=== PATIENT | male | born 2000 | race Caucasian/White ===

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

== ENCOUNTER 2022-02-12 01:16 | Emergency (ER) | payer OTHER ==
[~2022-02-12] VITALS: Ht 185.4 cm; Wt 116.6 kg
[~2022-02-12 01:16] MED LIST: IBUP-2213 PO
[2022-02-12 01:35] VITALS: BP 130/83
--- NOTE | 2022-02-12 01:41 | NUR ---
PATIENT TO LOBBY
--- NOTE | 2022-02-12 02:04 | NUR ---
PATIENT TO BED 3
--- NOTE | 2022-02-12 02:26 | NUR ---
PATIENT IN BED SIDE RAILS UP X1.
[2022-02-12] MEDS ORDERED: HYDROcodone/APAP 7.5/325 MG 1 TAB PO ONE (02:45)
[2022-02-12] MEDS ORDERED: AMOXIL/CLAVULANATE 500/125 MG 1 TAB PO SCH (02:45)
[2022-02-12] MEDS ORDERED: AMOXICILLIN 500 MG CAP ONE (03:03)
[2022-02-12 03:05] LABS: BASOPHILS % (AUTO) 0.4 % (0.0-2.0); EOSINOPHILS % (AUTO) 0.5 % (0.0-4.0); HEMATOCRIT 45.8 % (36-52); HEMOGLOBIN 15.4 g/dL (12.0-18.0); LYMPHOCYTES % (AUTO) 30.4 % (20.5-51.1); MEAN CORPUSCULAR HEMOGLOBIN 30 pg (27-31); MEAN CORPUSCULAR HGB CONC 34 g/dL (33-37); MEAN CORPUSCULAR VOLUME 88.7 fL (80-94); MONOCYTES # (AUTO) 0.8 K/uL (0.8-1.0); MONOCYTES % (AUTO) 8.2 % (1.7-9.3); NEUTROPHILS # (AUTO) 5.9 K/uL (1.8-7.7); NEUTROPHILS % (AUTO) 60.5 % (42.2-75.2); PLATELET COUNT (AUTO) 191 K/uL (140-450); RED BLOOD CELL COUNT(AUTO) 5.16 MIL/uL (4.20-6.10); RED CELL DISTRIBUTION WIDTH 13.5 % (11.6-13.7); WHITE BLOOD COUNT (AUTO) 9.7 K/uL (4.5-11.0)
--- NOTE | 2022-02-12 03:08 | NUR ---
PT TO CT AND XRAY
[2022-02-12 03:15] LABS: ANION GAP 14.4 (8-16); CARBON DIOXIDE 28.5 mmol/L (21-32); CREATININE 0.9 mg/dL (0.6-1.3); POTASSIUM 3.9 mmol/L (3.5-5.1); TOTAL BILIRUBIN 0.5 mg/dL (0.0-1.0)
[2022-02-12] MEDS ORDERED: AMOXIL/CLAVULANATE 875/125 MG 1 TAB PO ONE (03:20)
--- NOTE | 2022-02-12 03:49 | NUR ---
PT BACK FROM CT /XRAY. SIDE RAIL UP X1 FAMILY AT BEDSIDE. PAIN LEVEL 8/10. MEDS GIVEN
--- NOTE | 2022-02-12 05:31 | NUR ---
PENDING XRAY / CT RESULTS
[2022-02-12 06:07] VITALS: BP 130/68
[2022-02-12] MEDS ORDERED: AMOX-999 PO (06:33)
[2022-02-12] MEDS ORDERED: IBUP-2218 PO (06:33)
--- NOTE | 2022-02-12 07:28 | NUR ---
Patient discharged with v/s stable. Written and verbal after care instructions given and explained. Patient alert, oriented and verbalized understanding of instructions. Ambulatory with steady gait. All questions addressed prior to discharge. ID band removed. Patient advised to follow up with PMD. Rx of AUGMENTIN, IBUPROFEN given. Patient educated on indication of medication including possible reaction and side effects. Opportunity to ask questions provided and answered.
== END 2022-02-12 07:28 | disposition home or self-care (01) ==
LOC: MED 01:16
DX: S90.811A Abrasion, right foot, initial encounter (principal); S50.312A Abrasion of left elbow, initial encounter; S30.811A Abrasion of abdominal wall, initial encounter; Z79.1 Long term (current) use of non-steroidal anti-inflammatories (NSAID); Z79.2 Long term (current) use of antibiotics; V89.2XXA Person injured in unspecified motor-vehicle accident, traffic, initial encounter; Y93.89 Activity, other specified; Y92.410 Unspecified street and highway as the place of occurrence of the external cause; Y99.8 Other external cause status
CPT/HCPCS: 36415; 70450; 72125; 73080; 73630; 80053; 85025; 90471; 90715; 99285